=== PATIENT | female | born 1995 | race Caucasian/White ===

== ENCOUNTER → 2017-03-23 | Outpatient (CLI) | payer BC ==
[2017-03-26 02:02] LABS: CHLAMYDIA TRACH RNA*** NOT DETECTED (NOT DETECTED); GC (NEIS GONORRHOEAE)RNA** NOT DETECTED (NOT DETECTED)
== END | disposition home or self-care (01) ==
LOC: C.LABSPEC 13:54
PROVIDERS: ATTEND Physician Assistant
DX: Z01.419 Encounter for gynecological examination (general) (routine) without abnormal findings (principal)

== ENCOUNTER → 2017-03-23 | Outpatient (CLI) | payer BC | END | disposition home or self-care (01) | LOC: C.LAB1850 11:07 | PROVIDERS: ATTEND Physician Assistant | DX: Z01.411 Encounter for gynecological examination (general) (routine) with abnormal findings (principal); Z01.419 Encounter for gynecological examination (general) (routine) without abnormal findings; R87.613 High grade squamous intraepithelial lesion on cytologic smear of cervix (HGSIL) ==

== ENCOUNTER → 2017-03-23 | Outpatient (CLI) | payer BC | END | disposition home or self-care (01) | LOC: C.PAPS 14:09 | PROVIDERS: ATTEND Physician Assistant | DX: Z01.411 Encounter for gynecological examination (general) (routine) with abnormal findings (principal); R87.613 High grade squamous intraepithelial lesion on cytologic smear of cervix (HGSIL) ==

== ENCOUNTER → 2017-05-05 | Outpatient (CLI) | payer BC | END | disposition home or self-care (01) | LOC: C.PATHSPEC 17:35 | PROVIDERS: ATTEND Obstetrics & Gynecology | DX: N87.1 Moderate cervical dysplasia (principal); A63.0 Anogenital (venereal) warts ==

== ENCOUNTER → 2017-11-17 | Outpatient (CLI) | payer BC | END | disposition home or self-care (01) | LOC: C.PATHSPEC 17:50 | PROVIDERS: ATTEND Obstetrics & Gynecology | DX: R87.613 High grade squamous intraepithelial lesion on cytologic smear of cervix (HGSIL) (principal); N72 Inflammatory disease of cervix uteri ==

== ENCOUNTER → 2017-11-17 | Outpatient (CLI) | payer BC | END | disposition home or self-care (01) | LOC: C.PAPS 10:07 | PROVIDERS: ATTEND Obstetrics & Gynecology | DX: N87.1 Moderate cervical dysplasia (principal); Z30.9 Encounter for contraceptive management, unspecified ==

== ENCOUNTER 2021-02-26 20:40 | Inpatient (IN) ==
[2021-02-26] MEDS ORDERED: OXYTOCIN 30 UNITS/500 ML BAG IV PRN ×2 (21:42)
--- NOTE | 2021-02-26 21:47 | History & Physical Report ---
Date of Service February 26, 2021 Assessment & Plan (1) with 39 completed weeks gestation: (2) Normal labor: Admit. Discussed expectant management and monitoring for spontaneous progression of labor. Offered the patient augmentation now as she would really like to be delivered if possible before I go off shift. Discussed the pro/sons of both. She accepts augementation. She understands that she may still be and her care assumed by Dr. Reid in the am and she is agreeable to this. Epidural on demand. Fetus category one. Anticipate . History of Present Illness Chief Complaint: rom, contractions Primary Care Provider: NO PCP Patient is with iup at 39 6/7 weeks. She called noting lof starting at 7:15. Had sex earlier in the day. Had a large gush here that was nitrazine positive. +fm. Notes contractions that she notes feels like back spasms. She notes +fm. uncomplicated. EDc based on first trimester ultrasound, for irregular cycles. labs--O-/ab-/ri/rprnr/hepb-/hiv -/gc/ct neg/ declined genetics/cf/sma neg/ gtt x 2 nl/gbs neg. Patient wonders who will be coming on when I leave in the morning. I advised her it would be Dr. Reid. The patient becomes tearful. She has had a poor experience with a male physician in the past and was hoping to avoid a male doctor in labor. Advised patient that she knew of this possibility when entering our practice. She expresses understanding and is accepting of his care. Allergies Allergy/AdvReac Type Severity Reaction Status Date / Time Penicillins Allergy hives Verified 02/26/21 21:04 Home Medications Medication Instructions Recorded Confirmed Type acetaminophen 1 tab PO Q6 PRN 07/06/20 02/26/21 History prenat.vits,antonio,laq-[id number]-[id number] 1 tab PO DAILY 07/06/20 02/26/21 History Prilosec 1 tab PO DAILY 02/26/21 02/26/21 History Patient History Medical History Chlamydia RODY II (cervical intraepithelial neoplasia II) Genital warts HGSIL (high grade squamous intraepithelial lesion) on Pap smear of cervix History of chicken pox Surgical History S/P ACL repair Family History Father Alcohol abuse Mother Alcohol abuse Depression Dyslipidemia Hypertension Breast cancer dx at 55yo/post menopausal Osteoporosis Denies family history of Ovarian cancer Colorectal cancer Social History Smoking Status: Former smoker Hx Alcohol Use: No Preferred Language: Scottish Beliefs That Will Affect Care: None marital status: marital status details: Hardeep Meeks (28) [phone] Current Living Situation: Significant Other Current Living Situation Comment: lives with fob, dog, cats-fob changing litter current occupational status: employed 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, 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 [employer] Cardenas Feels Safe at Home: Yes OB History g1--present [employer] History hx of ct, genital warts and RODY 2 in 2018 Review of Systems All systems reviewed & are unremarkable except as noted in HPI & below Physical Exam Constitutional: WD/WN, vitals as above Gastrointestinal (Abdomen): soft, gravid, nt Psychiatric: A+Ox3, euthymic affect Genitourinary: sse--grossly ruptures toco--q 2-4min efm--145 with mod variability, accels to 160s, no decels cx--3/80/-2 Results & Data ([facility]) Vital Signs (Past 12 Hours) Vital Signs Temp Pulse Resp BP 02/26/21 20:53 96 H 113/70 02/26/21 20:52 36.8 C 18 Code Status & VTE Plan VTE Prophylaxis Plan VTE Prophylaxis will be ordered: No Coding Level of Care Code None Diagnoses with 39 completed weeks gestation Z3A.39 Normal labor O80; Z37.9
[2021-02-26 22:06] LABS: Hematocrit (blood only) 34.8 % (37-47); Mean Corpuscular Hemoglobin 34.6 pg (25-34); Mean Corpuscular Hgb Conc 34.5 g/dL (32-36); Mean Corpuscular Volume 100.3 fL (80-100); Mean Platelet Volume 11.4 fL (7.4-10.4); Platelet Count 224 K/uL (130-400); RDW Coefficient of Variation 13.4 % (11.5-14.5); RDW Standard Deviation 48.8 fL (36.4-46.3); Red Blood Count 3.47 M/uL (4.2-5.4); White Blood Count 8.93 K/uL (4.8-10.8)
[2021-02-26] MEDS: LACTATED RINGER'S 1,000 ML IV PRN ×2 (22:20→23:20)
[2021-02-26] MEDS ORDERED: ePHEDrine sulfate 50 MG/ML AMP ONE (22:36)
[2021-02-26] MEDS ORDERED: SODIUM CHLORIDE 0.9% INJ 10 ML VIAL ONE (22:36)
[2021-02-26] MEDS ORDERED: BUPIVACAINE 0.25% 30 ML VIAL ONE (22:37)
[2021-02-26] MEDS ORDERED: fentaNYL 2MCG/ML ROPIVACAINE 1.25MG/ML 100 ML BAG EPI ONE (22:37)
[2021-02-26] MEDS ORDERED: fentaNYL citrate 100 MCG/2 ML VIAL ONE (22:37)
--- NOTE | 2021-02-26 23:20 | Anesthesiology Consultation ---
Date of Service February 26, 2021 Assessment & Plan Chart Review Chart Review: Acceptable Risk for Surgery and Patient NOT seen in Pre Admission Testing Consults Requested none ASA ASA2 Proposed Anesthesia Anesthesia Type: Labor Epidural and CSE History Height/Weight Height: 5 ft 6 in Weight: 75.296 kg Allergies Allergy/AdvReac Type Severity Reaction Status Date / Time Penicillins Allergy hives Verified 02/26/21 21:04 Medications Home Medications Medication Instructions Recorded Confirmed Last Taken acetaminophen 1 tab PO Q6 PRN 07/06/20 02/26/21 Unknown prenat.vits,antonio,all-btqr-splqt 1 tab PO DAILY 07/06/20 02/26/21 02/26/21 20:00 Prilosec 1 tab PO DAILY 02/26/21 02/26/21 02/26/21 08:00 Active Medications Generic Name Dose Route Start Last Admin Trade Name Freq PRN Reason Stop Dose Admin Lactated Ringer's 1,000 mls @ 125 mls/hr 02/26/21 21:42 02/26/21 22:20 Lr IV 02/28/21 21:41 999 mls/hr .Q8H PRN Administration L&D Protocol Protocol Past Medical History Medical History Chlamydia RODY II (cervical intraepithelial neoplasia II) Genital warts HGSIL (high grade squamous intraepithelial lesion) on Pap smear of cervix History of chicken pox Exercise / Class Metabolic Activity II 4-5 Yardwork/Stairs/Walk up hill Past Family History Family History Father Alcohol abuse Mother Alcohol abuse Depression Dyslipidemia Hypertension Breast cancer dx at 55yo/post menopausal Osteoporosis Denies family history of Ovarian cancer Colorectal cancer Past Surgical History Surgical History S/P ACL repair Past Anesthesia History No Hx of Anesthesia Complications and No Family Hx of Anesthesia Complications History of PONV No Hx of PONV and No Hx of Motion Sickness Social History Smoking Status: Former smoker Hx Alcohol Use: No Physical Exam Vital Signs Last Vital Signs Temp 37.4 C 02/26/21 23:00 Pulse 75 02/26/21 23:14 Resp 18 02/26/21 23:00 BP 113/70 02/26/21 21:10 Pulse Ox 100 02/26/21 23:14 Testing Laboratory Results 02/26/21 21:52
[2021-02-26] MEDS ORDERED: NALOXONE HCL 0.4 MG/1 ML VIAL/CARP IV PRN (23:53)
[2021-02-26] MEDS ORDERED: PROMETHAZINE HCL 25 MG in SODIUM CHLORIDE 0.9% 50 ML IV PRN (23:53)
[2021-02-26] MEDS ORDERED: ePHEDrine sulfate 50 MG/ML AMP IV PRN (23:53)
[2021-02-26] MEDS ORDERED: NALOXONE HCL 1 MG in SODIUM CHLORIDE 0.9% 1000ML 1,000 ML IV PRN (23:53)
[2021-02-26] MEDS ORDERED: diphenhydrAMINE 50 MG/ML VIAL IV PRN (23:53)
[2021-02-26] MEDS ORDERED: fentaNYL 2MCG/ML ROPIVACAINE 1.25MG/ML 100 ML BAG EPI PRN (23:53)
[2021-02-26] MEDS ORDERED: ONDANSETRON INJ 2 MG/ML 2 ML VIAL IV PRN (23:53)
--- NOTE | 2021-02-27 01:42 | Labor Progress Brief Note ---
Date of Service February 27, 2021 Subjective comfortable with epidural, feels pressure with contractions Assessment & Plan (1) Normal labor: Admission and Anticipated Discharge Date Admission Date: February 26, 2021 continue expectant management. good change. fetus category one. anticipate . Physical Exam Constitutional: WD/WN, vitals as above Psychiatric: A+Ox3, euthymic affect Genitourinary: cx--5/100/-1 toco--q2-4min, pit at 6 efm--140s with mod variability, accels to 150s, no decels Results & Data ([facility]) Vital Signs (Past 12 Hours) Vital Signs Temp Pulse Resp BP Pulse Ox 02/27/21 01:35 68 98 02/27/21 01:30 64 98 02/27/21 01:25 60 98 02/27/21 01:24 77 94/60 L 02/27/21 01:20 72 96 02/27/21 01:15 61 97 02/27/21 01:10 60 98/53 L 96 02/27/21 01:05 66 96 02/27/21 01:00 76 96 02/27/21 00:55 72 111/59 L 97 02/27/21 00:50 71 99 02/27/21 00:45 64 97 02/27/21 00:40 74 98 02/27/21 00:39 86 120/58 L 02/27/21 00:35 77 97 02/27/21 00:30 83 97 02/27/21 00:25 70 97 02/27/21 00:24 75 95/55 L 02/27/21 00:20 66 96 02/27/21 00:15 71 97 02/27/21 00:10 71 97 02/27/21 00:06 37.1 C 72 18 105/50 L 02/27/21 00:05 74 97 02/27/21 00:02 67 97/53 L 02/27/21 00:00 71 97 02/26/21 23:55 71 98/54 L 97 02/26/21 23:50 79 107/55 L 98 02/26/21 23:45 79 111/61 97 02/26/21 23:40 81 99 02/26/21 23:36 74 92 02/26/21 23:34 84 99 06/29/21 23:29 70 98 02/26/21 23:24 72 100 02/26/21 23:19 74 100 02/26/21 23:14 75 100 02/26/21 23:09 66 100 02/26/21 23:04 71 100 02/26/21 23:00 37.4 C 18 02/26/21 22:59 70 100 02/26/21 22:54 73 99 02/26/21 22:25 37.1 C 16 02/26/21 21:10 36.8 C 96 H 18 113/70 02/26/21 20:53 96 H 113/70 02/26/21 20:52 36.8 C 18 Coding Level of Care Code None Diagnoses Normal labor O80; Z37.9
[2021-02-27] MEDS ORDERED: oxyCODONE/ACETAMINOPHEN 5mg/325mg TAB PO PRN (06:09)
[2021-02-27] MEDS ORDERED: ACETAMINOPHEN 325 MG TAB PO PRN (06:09)
[2021-02-27] MEDS ORDERED: SUPERCREAM 0.870% 15 GM JAR EXT PRN (06:20)
[2021-02-27] MEDS ORDERED: HYDROCORTISONE ACETATE 25 MG SUPP PR PRN (06:20)
[2021-02-27] MEDS ORDERED: BENZOCAINE 20% AER SPR 82.5 GM CAN EXT PRN (06:20)
[2021-02-27] MEDS ORDERED: OXYTOCIN 30 UNITS/500 ML BAG IV PRN (06:20)
[2021-02-27] MEDS ORDERED: bisacodyL 10 MG SUPP PR PRN (06:20)
[2021-02-27] MEDS ORDERED: DIPHTHERIA/TETANUS/PERTUSSIS 0.5 ML SYR/VIAL IM ONE (06:20)
--- NOTE | 2021-02-27 08:26 | Anesthesia Procedure Note ---
Date of Service February 27, 2021 Anesthesia Post Epidural Note Vital Signs Vital Signs: Temp Pulse Resp BP Pulse Ox 36.7 C 72 18 102/58 L 97 02/27/21 06:55 02/27/21 08:22 02/27/21 07:40 02/27/21 08:22 02/27/21 06:01 Notes Mental Status: alert / awake / arousable and participated in evaluation Patient Amnestic to Procedure: No Nausea / Vomiting: adequately controlled Pain: adequately controlled Airway Patency, RR, SpO2: stable & adequate BP & HR: stable & adequate Hydration State: stable & adequate Neuraxial Anesthesia: was administered and sensory block is resolving Anesthetic Complications: no major complications apparent and Pt Satisfied with anesthetic care Epidural: Removed without complications and With tip intact
[2021-02-27] MEDS: DOCUSATE SODIUM 100 MG CAP PO SCH ×2 (08:30→19:40)
[2021-02-27] MEDS: PRENATAL VITAMIN 1 TAB PO SCH (08:30)
[2021-02-27] MEDS: IBUPROFEN 600 MG TAB PO PRN ×3 (08:30→19:39)
[2021-02-28] MEDS: IBUPROFEN 600 MG TAB PO PRN ×3 (00:05→12:57)
[2021-02-28 06:34] LABS: Hematocrit (blood only) 34.9 % (37-47); Hemoglobin 11.7 g/dL (12.0-16.0)
--- NOTE | 2021-02-28 06:45 | Obstetrical Progress Note ---
Date of Service <Margaret Diaz DO - Last Filed: 02/28/21 07:48> February 28, 2021 Assessment & Plan <Margaret Diaz DO - Last Filed: 02/28/21 07:48> (1) Encounter for care and examination after delivery: 25 yo female ; PPD # 1 following vaginal delivery at 39+ weeks with uncomplicated . Continue routine care with possible discharge later today pending Pediatric clearance of . Subjective <Margaret Diaz DO - Last Filed: 02/28/21 07:48> 25 yo female ; PPD # 1 following vaginal delivery at 39+ weeks with uncomplicated ; doing well this AM; no abdominal cramping/pain; voiding well, passing gas but no BM; tolerating meals overnight, able to ambulate some within the room. going well Review of Systems Constitutional: denies fever, chills, sweats, headache Respiratory: denies SOB, difficulty breathing Cardiac: denies CP, chest palpitations, chest pressure Breast: denies breast pain : denies dysuria Physical Exam <Margaret Diaz DO - Last Filed: 02/28/21 07:48> General: patient is alert and oriented, in NAD Cardiac: +S1/S2, no murmurs rubs or gallops Respiratory: lungs CTA b/l, anteriorly and posteriorly, no wheezes rales or rhonchi, no increased work of breathing, symmetric chest rise, no respiratory distress Abdomen: soft, NT, +bowel sounds Uterus: uterine fundus firm Lower Extremities: no LE edema or swelling, no deep calf pain, Austin's sign negative b/l Results & Data ([facility]) <Margaret Diaz DO - Last Filed: 02/28/21 07:48> Vital Signs (Past 12 Hours) Vital Signs Temp Pulse Resp BP Pulse Ox 02/28/21 03:40 36.8 C 63 18 112/74 02/27/21 23:50 36.6 C 69 18 107/68 02/27/21 19:35 36.7 C 73 18 107/67 99 <Jason Reid MD, FACOG - Last Filed: 02/28/21 07:58> Co-Signing Physician Notes Resident Physician Supervision Note: I was present with Dr. Diaz during the history and exam. I discussed the case with the resident and agree with the findings and plan as documented in the note. Any exceptions or clarifications are listed here: [None] Documented By: Jason Reid MD, FACOG Resident Activity Tracking <Margaret Diaz DO - Last Filed: 02/28/21 07:48> Resident Involvement: Resident Care Provided Care Provided: OB Delivery
[2021-02-28 08:12] VITALS: TEMP 98.4; O2SAT 98
[2021-02-28] MEDS: DOCUSATE SODIUM 100 MG CAP PO SCH (08:50)
[2021-02-28] MEDS: PRENATAL VITAMIN 1 TAB PO SCH (08:50)
[2021-02-28 12:51] VITALS: BP 105/57; PULSE 65
[2021-02-28] MEDS ORDERED: bisacodyL 5 MG TABEC PO SCH (20:00)
--- NOTE | 2021-03-01 16:16 | Delivery Summary ---
Vaginal Delivery Summary Date of Service February 27, 2021 Pre-operative Diagnosis: at 40 weeks srom Post-operative Diagnosis: same Procedure: epidural pitocin augmentation first degree laceration and repair EBL: 300cc Anesthesia: epidural Procedure: The patient pushed for about 30 minutes to deliver a viable infant in roaposition. The nose and mouth were bulb suctioned on the perineum. A tight nuchal cord was identified. Unable to delivery the baby through it and so clamped and cut on the perineum. The rest of the was delivered without difficulty. The baby was vigorous. The nose and mouth were again bulb suctioned and the infant was placed in the maternal abdomen for drying and atten tion. Cord blood and segment obtained. Placenta delivered spontaneous, intact with a three vessel cord. Cervix/sulci/rectum were intact. A first degree perineal laceration was repaired in the normal standard fashion. Hemostasis obtained with dilute pitocin and fundal massage. Apgars were 8/8. Mother and baby doing well at the end of the delivery. Vaginal Delivery Summary and 1st Degree LAC [facility] Vaginal Delivery Charge Vaginal Delivery Codes: 23222 global code for the antepartum, delivery, and po st- Delivery Type Details: and 1st Degree LAC
== END 2021-02-28 14:57 | disposition home or self-care (01) | DRG 807 ==
LOC: OPB 20:40 → 4S1 20:46 → 4N 02-27 09:00

== ENCOUNTER 2022-06-23 21:04 | Inpatient (IN) ==
[2022-06-23] MEDS ORDERED: SODIUM CHLORIDE 0.9% INJ 10 ML VIAL ONE (21:38)
[2022-06-23] MEDS ORDERED: fentaNYL citrate 100 MCG/2 ML VIAL ONE (21:38)
[2022-06-23] MEDS ORDERED: LIDOCAINE 2%/EPINEPHRINE 1:200,000 20 ML SDV ONE (21:38)
[2022-06-23] MEDS ORDERED: ePHEDrine sulfate 50 MG/ML AMP ONE (21:38)
[2022-06-23] MEDS ORDERED: BUPIVACAINE 0.25% 30 ML VIAL ONE (21:38)
[2022-06-23] MEDS ORDERED: fentaNYL 2MCG/ML ROPIVACAINE 1.25MG/ML 100 ML BAG EPI ONE (21:39)
[2022-06-23] MEDS: LACTATED RINGER'S 1,000 ML IV PRN ×2 (21:40→23:57)
[2022-06-23] MEDS ORDERED: LIDOCAINE 1% LOCAL 20 ML VIAL INFIL PRN (21:44)
[2022-06-23] MEDS ORDERED: OXYTOCIN 30 UNITS/500 ML BAG IV PRN (21:44)
[2022-06-23 22:16] LABS: Hematocrit (blood only) 34.7 % (34.1-44.9); Mean Corpuscular Hemoglobin 34.8 pg (25.0-34.0); Mean Corpuscular Hgb Conc 34.6 g/dL (32.0-36.0); Mean Corpuscular Volume 100.6 fL (80.0-100.0); Mean Platelet Volume 11.3 fL (9.4-12.3); Platelet Count 209 K/uL (130-400); RDW Coefficient of Variation 13.3 % (11.5-14.5); RDW Standard Deviation 48.6 fL (36.4-46.3); Red Blood Count 3.45 M/uL (3.93-5.22); White Blood Count 10.94 K/ul (4.8-10.8)
[2022-06-23] MEDS ORDERED: fentaNYL 2MCG/ML ROPIVACAINE 1.25MG/ML 100 ML BAG EPI PRN (22:39)
[2022-06-23] MEDS ORDERED: ONDANSETRON INJ 2 MG/ML 2 ML VIAL IV PRN (22:39)
[2022-06-23] MEDS ORDERED: NALBUPHINE HCL INJ 10 MG/ML AMP IV PRN (22:39)
[2022-06-23] MEDS ORDERED: diphenhydrAMINE 50 MG/ML VIAL IV PRN (22:39)
[2022-06-23] MEDS ORDERED: ePHEDrine sulfate 50 MG/ML AMP IV PRN (22:39)
[2022-06-23] MEDS ORDERED: NALOXONE HCL 0.4 MG/1 ML VIAL/CARP IV PRN (22:39)
[2022-06-23] MEDS ORDERED: NALOXONE HCL 1 MG in SODIUM CHLORIDE 0.9% 1000ML 1,000 ML IV PRN (22:39)
--- NOTE | 2022-06-23 22:41 | Anesthesiology Consultation ---
Date of Service June 23, 2022 Assessment & Plan Chart Review Chart Review: Patient NOT seen in Pre Admission Testing and Acceptable Risk for Labor Epidural Consults Requested none ASA ASA2 Proposed Anesthesia Anesthesia Type: Labor Epidural and CSE Risk / Benefits Reviewed With: PT / POA / Parent / Guardian, Accepts Plan and Informed Consent Obtained History Height/Weight Height: 5 ft 6 in Weight: 74.389 kg Allergies Allergy/AdvReac Type Severity Reaction Status Date / Time Penicillins Allergy hives Verified 06/20/22 09:26 shellfish derived Allergy Verified 06/20/22 09:26 Medications Home Medications Medication Instructions Recorded Confirmed Last Taken prenat.vits,antonio,[id number]-xtcn-xvviz 1 tab PO DAILY 07/06/20 06/23/22 06/22/22 21:00 Active Medications Generic Name Dose Route Start Last Admin Trade Name Freq PRN Reason Stop Dose Admin Lactated Ringer's 1,000 mls @ 125 mls/hr 06/23/22 21:44 06/23/22 22:26 Lr IV 06/25/22 21:43 125 mls/hr .Q8H PRN Infusion L&D Protocol Protocol NPO Date Last Intake of Fluids: 06/23/22 Time Last Intake of Fluids: 20:00 Date Last Intake of Solids: 06/23/22 Time Last Intake of Solids: 18:00 Past Medical History Medical History Chlamydia RODY II (cervical intraepithelial neoplasia II) HGSIL (high grade squamous intraepithelial lesion) on Pap smear of cervix History of chicken pox Exercise / Class Metabolic Activity II 4-5 Yardwork/Stairs/Walk up hill Past Family History Family History Father Alcohol abuse Mother Alcohol abuse Depression Dyslipidemia Hypertension Breast cancer dx at 55yo/post menopausal Osteoporosis Denies family history of Ovarian cancer Colorectal cancer Past Surgical History Surgical History S/P ACL repair Status post colposcopy Past Anesthesia History No Hx of Anesthesia Complications and No Family Hx of Anesthesia Complications History of PONV No Hx of PONV and No Hx of Motion Sickness Social History Smoking Status: Former smoker Smoking End Date: 04/21 Hx Alcohol Use: No Hx Substance Use: No Review of Systems no chest pain or sob Physical Exam Vital Signs Last Vital Signs Temp 36.7 C 06/23/22 21:15 Pulse 94 H 06/23/22 22:39 Resp 18 06/23/22 21:15 BP 108/62 06/23/22 21:11 Pulse Ox 89 L 06/23/22 22:39 ENMT Mouth: no TMJ abnormality Thyromental Distance: > or= 3.5 Finger Breadths Mallampati Class: II Neck normal visual inspection Respiratory normal respiratory effort Auscultation: lungs clear to auscultation bilaterally Cardiovascular Rate/Rhythm: regular rate and regular rhythm Musculoskeletal Spine: normal cervical ROM Neurologic moves all extremities Psychiatric Orientation: alert and oriented x 3 Testing Laboratory Results 06/23/22 22:02
--- NOTE | 2022-06-24 00:42 | Delivery Summary ---
Vaginal Delivery Summary Date of Service June 24, 2022 Vaginal Delivery Summary DIAGNOSES: 1. Jimenez intrauterine at 40w4d gestation. 2. Spontaneous onset of labor. 3. Group B Streptococcus Neg. PROCEDURE: Spontaneous vaginal delivery without laceration. SURGEON: Joelle Early MD. WEB PRODUCTION ARTIST: None. ESTIMATED BLOOD LOSS: 250 mL. COMPLICATIONS: None. PLACENTA: Spontaneous and intact with a 3-vessel cord. DISPOSITION: Stable to labor and delivery. DESCRIPTION: The patient pushed well and brought the head to in DOA position. The infant's head was allowed to deliver with contraction force and no further active pushing, with the perineum protected during this time. There was one loose nuchal cord, reduced at the perineum. The shoulders and body delivered without any difficulty, and the was placed on the maternal abdomen. It was vigorous and moving all extremities, and making respiratory efforts. The cord was doubly clamped by the MD and then cut by the FOB. The placenta delivered spontaneously and was noted to be intact and with a 3VC. The cervix, vagina and perineum were examined and were found to be without defect requiring repair. The fundus was firm and lochia minimal immediately after delivery. [facility] Vaginal Delivery Charge Vaginal Delivery Codes: 60215 global code for the antepartum, delivery, and post-
[2022-06-24] MEDS ORDERED: BENZOCAINE 20% AER SPR 82.5 GM CAN EXT PRN (01:09)
[2022-06-24] MEDS ORDERED: ACETAMINOPHEN 325 MG TAB PO PRN (01:09)
[2022-06-24] MEDS ORDERED: HYDROCORTISONE ACETATE 25 MG SUPP PR PRN (01:09)
[2022-06-24] MEDS ORDERED: DIPHTHERIA/TETANUS/PERTUSSIS 0.5 ML SYR/VIAL IM ONE (01:09)
[2022-06-24] MEDS: IBUPROFEN 600 MG TAB PO PRN ×4 (04:51→19:49)
[2022-06-24] MEDS: DOCUSATE SODIUM 100 MG CAP PO SCH ×2 (08:11→19:49)
[2022-06-24] MEDS: PRENATAL VITAMIN 1 TAB PO SCH (08:11)
--- NOTE | 2022-06-24 08:52 | Anesthesia Procedure Note ---
Date of Service June 24, 2022 Anesthesia Post Epidural Note Vital Signs Vital Signs: Temp Pulse Resp BP Pulse Ox O2 Del Method 98.2 F 88 14 101/65 98 06/24/22 08:15 06/24/22 08:15 06/24/22 08:15 06/24/22 08:15 06/24/22 08:15 06/24/22 08:15 Pain Intensity Bilateral Abdomen: Pain Intensity: 3 Notes Mental Status: alert / awake / arousable and participated in evaluation Nausea / Vomiting: adequately controlled Pain: adequately controlled Airway Patency, RR, SpO2: stable & adequate BP & HR: stable & adequate Hydration State: stable & adequate Neuraxial Anesthesia: was administered and sensory block is resolving Anesthetic Complications: no major complications apparent and Pt Satisfied with anesthetic care Epidural: Removed without complications and With tip intact
[2022-06-24] MEDS: oxyCODONE/ACETAMINOPHEN 5mg/325mg TAB PO PRN ×3 (09:54→22:01)
[2022-06-25] MEDS: IBUPROFEN 600 MG TAB PO PRN ×2 (02:25→06:42)
--- NOTE | 2022-06-25 06:02 | Obstetrical Progress Note ---
Date of Service <Radha SLela Ambrocio DO - Last Filed: 06/25/22 06:45> June 25, 2022 Assessment & Plan <Radha AmbrocioDO - Last Filed: 06/25/22 06:45> (1) Status post vaginal delivery: continue OOB, ambulation, diet as tolerated <Latonya Brody MD, FACOG - Last Filed: 06/25/22 08:13> (1) Status post vaginal delivery: continue OOB, ambulation, diet as tolerated discharge to home follow up in 6 weeks Subjective <Radhaopal AmbrocioDO - Last Filed: 06/25/22 06:45> Adriana is a 26 y/o female who is now PPD # 1 following spontaneous vaginal delivery at 40 4/7 weeks. Reports feeling well overall this morning. Mild abdominal cramping & pain well managed on analgesics. Voiding. Tolerating meals overnight and able to ambulate some. Some persistent lochia with some improvement this morning. Breast feeding. Review of Systems Denies fever, chills, sweats Denies shortness of breath, difficulty breathing, chest pain, palpitations, chest pressure. Denies breast pain. Denies dysuria. Denies headache or changes in vision. Physical Exam <Radha SLela Ambrocio DO - Last Filed: 06/25/22 06:45> General: Alert, oriented. No acute distress. Cardiac: Regular rate and rhythm, no murmurs/rubs/gallops. Respiratory: Clear to auscultation bilaterally a/p, no wheezes/rales/rhonchi. No increased work of breathing. Symmetrical chest rise. No respiratory distress. Abdomen: Soft, nontender, nondistended. Uterus: Uterine fundus firm, palpable 3 cm below umbilicus. Lower Extremities: No lower extremity edema or swelling. No deep calf pain. Austin's negative bilaterally. Results & Data ([facility]) <Radha Newberry DO Cristóbal - Last Filed: 06/25/22 06:45> Vital Signs (Past 12 Hours) Vital Signs Temp Pulse Resp BP Pulse Ox O2 Del Method 06/24/22 23:15 36.4 C L 62 16 101/63 98 Room Air 06/24/22 20:15 36.8 C 62 18 101/62 98 Room Air <Latonya Brody MD, FACOG - Last Filed: 06/25/22 08:13> Co-Signing Physician Notes Resident Physician Supervision Note: I interviewed and examined the patient. Discussed with Dr. Ambrocio and agree with findings and plan as documented in the note. Any exceptions or clarifications are listed here: [None] Documented By: Latonya Brody MD, FACOG Resident Activity Tracking <Radha Ambrocio, - Last Filed: 06/25/22 06:45> Resident Involvement: Resident Care Provided Care Provided: OB Delivery (Post )
[2022-06-25 07:14] LABS: Hematocrit (blood only) 36.8 % (34.1-44.9); Hemoglobin 12.5 g/dl (12.0-16.0); Mean Corpuscular Hemoglobin 34.7 pg (25.0-34.0); Mean Corpuscular Volume 102.2 fL (80.0-100.0); Mean Platelet Volume 11.5 fL (9.4-12.3); Platelet Count 198 K/uL (130-400); RDW Coefficient of Variation 13.4 % (11.5-14.5); RDW Standard Deviation 50.7 fL (36.4-46.3); White Blood Count 10.09 K/ul (4.8-10.8)
[2022-06-25] MEDS: PRENATAL VITAMIN 1 TAB PO SCH (09:32)
[2022-06-25] MEDS: DOCUSATE SODIUM 100 MG CAP PO SCH (09:32)
== END 2022-06-25 12:45 | disposition home or self-care (01) | DRG 807 ==
LOC: OPB 21:04 → 4S1 21:05 → 4E2 06-24 03:02